=== PATIENT | female | born 1950 | race African-American/Black ===

== ENCOUNTER 2025-01-31 11:56 | Outpatient (CLI) | payer MEDICARE ==
[2025-01-31 13:19] LABS: Estimated GFR - POC 68.0
== END 2025-01-31 11:57 | disposition home or self-care (01) ==
LOC: CSHMRI 11:56
PROVIDERS: ATTEND Family Medicine
DX: N63.23 Unspecified lump in the left breast, lower outer quadrant (principal); Z85.3 Personal history of malignant neoplasm of breast; Z90.12 Acquired absence of left breast and nipple
CPT/HCPCS: 82565; C8908

== ENCOUNTER 2025-02-13 07:09 | Outpatient (CLI) | payer MEDICARE ==
[2025-02-13 08:35] LABS: #Basophils Less than 0.03 10x3/uL (0.0-0.2); #Eosinophils 0.10 10x3/uL (0.0-0.5); #Monocytes 0.53 10x3/uL (0.0-1.1); #Neutrophils 5.74 10x3/uL (1.5-8.4); %Basophils 0.3 % (0.0-2.0); %Eosinophils 1.3 % (0.0-6.0); %Lymphocytes 19.9 % (18.0-47.0); %Monocytes 6.6 % (0.0-10.0); %Neutrophils 71.6 % (40.0-75.0); Hematocrit 34.3 % (34.9-44.5); Hemoglobin 10.8 g/dL (12.0-15.5); Mean Corpuscular Hemoglobin 24.4 pg (27.0-33.0); Mean Corpuscular Volume 77.6 fL (81.6-98.3); Platelet Count 366 10x3/uL (150-450); Red Blood Cell (RBC) Count 4.42 10x6/uL (3.90-5.03); White Blood Cell (WBC) Count 8.00 10x3/uL (3.5-10.5)
[2025-02-13 08:51] LABS: Anion Gap 19 mmol/L (10-20); BUN (Urea Nitrogen) 16 mg/dL (9.8-20.1); Calc. Creatinine Clearance 0 mL/min (70-130); Calcium 8.9 mg/dL (7.8-10.44); Carbon Dioxide 21 mmol/L (23-31); Chloride 102 mmol/L (98-107); Glucose 301 mg/dL (83-110); Potassium 4.5 mmol/L (3.5-5.1); Sodium 137 mmol/L (136-145)
== END 2025-02-13 07:10 | disposition home or self-care (01) ==
LOC: CSHLAB 07:09
PROVIDERS: ATTEND Surgery
DX: Z01.818 Encounter for other preprocedural examination (principal); C50.912 Malignant neoplasm of unspecified site of left female breast; R94.31 Abnormal electrocardiogram [ECG] [EKG]
CPT/HCPCS: 80048; 85025; 93005; 93010

== ENCOUNTER 2025-02-17 07:26 | Day surgery (SDC) | payer MEDICARE ==
[2025-02-13 08:19] VITALS: BMI 23.3
[2025-02-17] MEDS ORDERED: Lidocaine 2% MPF 10 ML AMP (For Epidural Use) ONE (09:50)
[2025-02-17] MEDS ORDERED: Bupivacaine/Epinephrine 0.25% 30 ML VIAL ONE (09:51)
[2025-02-17] MEDS ORDERED: CEFAZOLIN 2 GM VIAL ONE (09:59)
[2025-02-17] MEDS ORDERED: Famotidine/PF 20 mg/2ml Vial ONE (10:01)
[2025-02-17] MEDS ORDERED: PROPOFOL 20 ML ONE (10:05)
[2025-02-17] MEDS ORDERED: Ketorolac Tromethamine 30 MG (1 mL) VIAL ONE (10:06)
[2025-02-17] MEDS ORDERED: Ondansetron PF 4 MG/2 ML Vial ONE ×2 (10:07→12:47)
== END 2025-02-17 13:50 | disposition home or self-care (01) ==
LOC: CSHSDC 07:26
PROVIDERS: ATTEND Surgery
DX: C50.112 Malignant neoplasm of central portion of left female breast (principal); I10 Essential (primary) hypertension; E11.9 Type 2 diabetes mellitus without complications; Z17.0 Estrogen receptor positive status [ER+]; Z17.22 Progesterone receptor negative status; Z17.32 Human epidermal growth factor receptor 2 negative status; Z90.710 Acquired absence of both cervix and uterus; Z79.84 Long term (current) use of oral hypoglycemic drugs; Z79.82 Long term (current) use of aspirin; Z79.899 Other long term (current) drug therapy
CPT/HCPCS: 19303; 38525; 38900; 78195; 82962; A9541; C1889; J1100; J1308; J1885; J2405; J2704; J3010; 36416; 88307